=== PATIENT | female | born 2000 | race Caucasian/White ===

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

== ENCOUNTER 2022-11-26 15:29 | Emergency (ER) | payer MEDICAID, OTHER ==
[~2022-11-26] VITALS: Ht 167.6 cm; Wt 77.1 kg
[2022-11-26 15:43] VITALS: BP 106/61; PULSE 74; RESP 16; TEMP 97.8; O2SAT 98
[2022-11-26] MEDS ORDERED: FLUC100T PO (16:22)
[2022-11-26] MEDS ORDERED: NITR100C7 PO (16:22)
[2022-11-26 16:32] LABS: APPEARANCE,URINE CLEAR (CLEAR); BILIRUBIN,URINE NEGATIVE (NEGATIVE); BLOOD, URINE NEGATIVE (NEGATIVE); COLOR,URINE YELLOW (YELLOW); LEUKOCYTE ESTERASE ,URINE NEGATIVE (NEGATIVE); NITRITE, URINE NEGATIVE (NEGATIVE); PH,URINE 6.5 (5.0-9.0); PROTEIN,URINE NEGATIVE (NEGATIVE); UGLUCOSE NEGATIVE (NEGATIVE); UROBILINOGEN,URINE 0.2 EU/dL (0.2 - 1)
[2022-11-26 17:23] VITALS: BP 114/65; PULSE 70; RESP 16; TEMP 97.8; O2SAT 99
[2022-11-27] MEDS ORDERED: FLUC100T PO (10:28)
[2022-11-27] MEDS ORDERED: NITR100C7 PO (10:28)
== END 2022-11-26 17:20 | disposition home or self-care (01) ==
LOC: MED 15:29
DX: N39.0 Urinary tract infection, site not specified (principal); B37.31 Acute candidiasis of vulva and vagina; Z79.899 Other long term (current) drug therapy
CPT/HCPCS: 81003; 81025; 87086; 87491; 99283

== ENCOUNTER 2023-01-19 11:25 | Emergency (ER) | payer MEDICAID ==
[~2023-01-19] VITALS: Ht 167.6 cm; Wt 86.4 kg
[~2023-01-19 11:25] MED LIST: FLUC100T PO; NITR100C7 PO
[2023-01-19 11:48] VITALS: BP 107/70; PULSE 58; RESP 20; TEMP 98.5; O2SAT 99
[2023-01-19] MEDS ORDERED: IBUP-1842 PO ×2 (13:02→14:14)
[2023-01-19] MEDS ORDERED: ALBU0.0912 IH ×2 (13:05→14:14)
== END 2023-01-19 13:50 | disposition home or self-care (01) ==
LOC: MED 11:25
DX: S50.02XA Contusion of left elbow, initial encounter (principal); X58.XXXA Exposure to other specified factors, initial encounter; Y93.89 Activity, other specified; Y92.89 Other specified places as the place of occurrence of the external cause; Y99.8 Other external cause status
CPT/HCPCS: 73080; 99283

== ENCOUNTER 2023-03-11 08:54 | Emergency (ER) | payer MEDICAID ==
[~2023-03-11] VITALS: Ht 167.6 cm; Wt 90.3 kg
[~2023-03-11 08:54] MED LIST changes: +ALBU0.0912 IH; +IBUP-1842 PO
[2023-03-11 09:05] VITALS: BP 121/77; PULSE 70; RESP 18; TEMP 98.4; O2SAT 98
[2023-03-11] MEDS ORDERED: KETOROLAC 30 MG/ML VIAL IM ONE (09:45)
[2023-03-11] MEDS ORDERED: LIDOCAINE 5% 1 EA PATCH TP ONE (09:45)
[2023-03-11] MEDS ORDERED: IBUP-2213 PO (10:23)
[2023-03-11] MEDS ORDERED: LID5T TP (10:23)
[2023-03-11] MEDS ORDERED: CYCL-711 PO (10:23)
== END 2023-03-11 10:28 | disposition home or self-care (01) ==
LOC: MED 08:54
DX: M54.50 Low back pain, unspecified (principal); Z79.899 Other long term (current) drug therapy
CPT/HCPCS: 81002; 81025; 96372; 99283; J1885